=== PATIENT | male | born 1945 | race Hispanic/Latino ===

== ENCOUNTER 2022-05-08 09:53 | Outpatient (CLI) | payer MEDICARE ==
[2022-05-08] MEDS ORDERED: Iopamidol 370 76% 100 ML VIAL ONE (14:14)
== END 2022-05-08 09:54 | disposition home or self-care (01) ==
LOC: BICCT 09:53
PROVIDERS: ATTEND Specialist
DX: G91.2 (Idiopathic) normal pressure hydrocephalus (principal)
CPT/HCPCS: 70470; 82565

== ENCOUNTER 2023-03-29 10:30 | Outpatient (CLI) | payer MEDICARE | END 2023-03-29 10:31 | disposition home or self-care (01) | LOC: SCSRAD 10:30 | PROVIDERS: ATTEND Family Medicine | DX: B34.9 Viral infection, unspecified (principal); R91.8 Other nonspecific abnormal finding of lung field | CPT/HCPCS: 71046 ==